=== PATIENT | female | born 1950 | race Caucasian/White ===

== ENCOUNTER → 2020-03-17 14:39 | Outpatient (BNVA) | payer MEDICARE, MEDICAID, SELFPAY | PROVIDERS: PCP Internal Medicine; Referring Provider Internal Medicine; Visit Provider Internal Medicine Cardiovascular Disease | DX: I48.0 Paroxysmal atrial fibrillation (principal) | CPT/HCPCS: 93005 ==

== ENCOUNTER 2020-06-06 09:35 | Outpatient (REF) | payer MEDICARE, MEDICAID, SELFPAY ==
[2020-06-06 10:39] LABS: MANUAL DIFF FLAG NO
[2020-06-06 10:55] LABS: Basophils Percent Auto 0.6 % (0-2); Eosinophils Absolute Auto 0.4 X10*3/uL (0.0-0.4); Eosinophils Percent Auto 5.9 % (0-4); Hematocrit 32.8 % (37-47); Hemoglobin 9.8 g/dl (12.0-16.0); Imm Gran Abs Auto 0.02 X10*3/uL (0.00-0.03); Imm Gran Pct Auto 0.3 % (0.0-0.4); Lymphocytes Absolute Auto 1.6 X10*3/uL (1.2-4.9); Lymphocytes Percent Auto 22.1 % (20-40); Mean Corpuscular HGB Conc 29.9 g/dl (31.0-35.0); Mean Corpuscular Hemoglobin 24.8 pg (27.0-33.0); Monocytes Absolute Auto 0.5 X10*3/uL (0.1-1.2); Monocytes Percent Auto 6.8 % (2-11); Neutrophils Absolute Auto 4.6 X10*3/uL (2.0-8.3); Neutrophils Percent Auto 64.3 % (45-73); Platelet Count 203 X10*3/uL (160-400); Red Blood Count 3.95 X10*6/uL (4.20-5.50); Red Cell Distribution Width 14.9 % (11.0-16.0); White Blood Count 7.2 X10*3/uL (4.8-10.8)
[2020-06-06 11:34] LABS: Vitamin D 25-OH Total 41.8 ng/mL (>30)
[2020-06-06 11:35] LABS: Alanine Aminotransferase 20 U/L (0-31); Alkaline Phosphatase 56 U/L (39-117); Anion Gap 16 (12-20); Aspartate Amino Transferase 24 U/L (5-31); Bilirubin Total 0.3 mg/dL (0.0-1.0); Blood Urea Nitrogen 11 mg/dL (9-16); Calcium 8.8 mg/dL (8.4-10.2); Carbon Dioxide 25 mmol/L (22-29); Chloride 104 mmol/L (96-108); Cholesterol 73 mg/dL; Estimated Glomerular Filt Rate > 60; Glucose Fasting 127 mg/dL (60-99); HDL Cholesterol 47 mg/dL; LDL Cholesterol Calculated 18 mg/dl; Potassium 4.7 mmol/l (3.3-5.1); Sodium 140 mmol/L (135-145); Total Protein 6.5 g/dL (6.5-8.0); Triglycerides 43 mg/dL
== END 2020-06-06 09:36 | disposition home or self-care (01) ==
LOC: HO.LAB 09:35
PROVIDERS: PCP Internal Medicine; Visit Provider Internal Medicine
DX: E78.00 Pure hypercholesterolemia, unspecified (principal); E55.9 Vitamin D deficiency, unspecified; Z79.01 Long term (current) use of anticoagulants; E11.9 Type 2 diabetes mellitus without complications
CPT/HCPCS: 36415; 80053; 80061; 82306; 85025

== ENCOUNTER → 2020-06-14 13:29 | Outpatient (BNVA) | payer MEDICARE, MEDICAID, SELFPAY | PROVIDERS: PCP Internal Medicine; Visit Provider Internal Medicine Cardiovascular Disease | DX: I48.0 Paroxysmal atrial fibrillation (principal); D64.9 Anemia, unspecified; I10 Essential (primary) hypertension | CPT/HCPCS: 93005; 99212 ==

== ENCOUNTER → 2020-06-27 09:31 | Outpatient (BNVA) | payer MEDICARE, MEDICAID, SELFPAY | PROVIDERS: PCP Internal Medicine; Visit Provider Nurse Practitioner Gerontology | DX: Z13.89 Encounter for screening for other disorder (principal) | CPT/HCPCS: Q3014 ==

== ENCOUNTER → 2020-09-05 14:36 | Outpatient (BNVA) | payer MEDICARE, MEDICAID, SELFPAY | PROVIDERS: PCP Internal Medicine; Visit Provider Internal Medicine Cardiovascular Disease | DX: I48.0 Paroxysmal atrial fibrillation (principal) | CPT/HCPCS: 93005 ==

== ENCOUNTER → 2020-09-14 14:00 | Outpatient (BNVA) | payer MEDICARE, MEDICAID, SELFPAY | PROVIDERS: PCP Internal Medicine; Visit Provider Physician Assistant | DX: D64.9 Anemia, unspecified (principal); R93.89 Abnormal findings on diagnostic imaging of other specified body structures; Z79.01 Long term (current) use of anticoagulants | CPT/HCPCS: 99212 ==

== ENCOUNTER 2020-09-15 10:13 | Outpatient (REF) | payer MEDICARE, MEDICAID, SELFPAY ==
[2020-09-15 11:21] LABS: MANUAL DIFF FLAG NO
[2020-09-15 11:37] LABS: Basophils Percent Auto 0.5 % (0-2); Eosinophils Absolute Auto 0.3 X10*3/uL (0.0-0.4); Eosinophils Percent Auto 3.5 % (0-4); Hematocrit 37.1 % (37-47); Hemoglobin 11.4 g/dl (12.0-16.0); Imm Gran Abs Auto 0.02 X10*3/uL (0.00-0.03); Imm Gran Pct Auto 0.3 % (0.0-0.4); Lymphocytes Absolute Auto 1.6 X10*3/uL (1.2-4.9); Lymphocytes Percent Auto 22.1 % (20-40); Mean Corpuscular HGB Conc 30.7 g/dl (31.0-35.0); Mean Corpuscular Hemoglobin 26.6 pg (27.0-33.0); Mean Corpuscular Volume 86.7 fL (80-98); Mean Platelet Volume 12.8 fL (9.4-12.3); Monocytes Absolute Auto 0.5 X10*3/uL (0.1-1.2); Monocytes Percent Auto 6.1 % (2-11); Neutrophils Absolute Auto 4.9 X10*3/uL (2.0-8.3); Neutrophils Percent Auto 67.5 % (45-73); Platelet Count 196 X10*3/uL (160-400); Red Blood Count 4.28 X10*6/uL (4.20-5.50); Red Cell Distribution Width 16.2 % (11.0-16.0); White Blood Count 7.3 X10*3/uL (4.8-10.8)
[2020-09-15 12:04] LABS: Ferritin 13 ng/mL (10-250)
== END 2020-09-15 10:14 | disposition home or self-care (01) ==
LOC: HO.LAB 10:13
PROVIDERS: PCP Internal Medicine; Visit Provider Internal Medicine Medical Oncology
DX: D64.9 Anemia, unspecified (principal)
CPT/HCPCS: 36415; 82728; 85025

== ENCOUNTER 2020-09-26 11:15 | Day surgery (SDC) | payer MEDICARE, MEDICAID, SELFPAY ==
--- NOTE | 2020-09-22 14:35 | P.CONAN_ITS ---
Documented by User: Lilo Zapata 09/22/20 14:39 HPI - Anesthesia Eval Consult details Narrative: 70yo F for Upper Endoscopy and Colonoscopy Xarelto for afib (? lovenox bridge) [facility] Active Problems Active Problems: All Active Problems (Updated 09/21/20 @ 10:42 by Kristina Ruvalcaba) Diabetes mellitus type 2, controlled, without complications (Acute) Anemia (Acute) Pancreatic abnormality (Acute) Abnormal MRI (Acute) Anticoagulant long-term use (Acute) Hyperlipidemia LDL goal <100 (Acute) Essential hypertension (Acute) Dyslipidemia (Acute) Paroxysmal atrial fibrillation (Acute) Urticaria (Acute) Normocytic anemia (Acute) Hypovitaminosis D (Acute) Past Medical History Medical History (Updated 09/21/20 @ 10:42 by Kristina Ruvalcaba) Abnormal MRI Anemia Anticoagulant long-term use Dyslipidemia Essential hypertension Hyperlipidemia LDL goal <100 Hypovitaminosis D IDDM (insulin dependent diabetes mellitus) Normocytic anemia On beta jomar at home Osteoarthritis Osteoporosis Pancreatic abnormality Paroxysmal atrial fibrillation Urticaria Family History Family History Father Diabetes HTN (hypertension) Heart attack Mother No problems noted. Family/Other No problems noted. Sister Diabetes Heart attack Asthma Surgical History Surgical History (Updated 09/21/20 @ 10:39 by Kristina Ruvalcaba) History of cataract extraction with lens replacement History of reversal of tubal ligation History of tubal ligation Social History Social History Household Members: Spouse Alcohol intake: former Smoking Status: Never smoker Use of substances other than those prescribed or required for medical reasons: No Have you been hit, kicked, punched, or otherwise hurt by someone within the past year? If so, by whom?: No Are you DNR?: No Advance Directives: No Advance Directives Information Provided: Yes Current occupational status: retired Meds Allergies Allergy/AdvReac Type Severity Reaction Status Date / Time No Known Allergies Allergy Unknown UN KNOWN Verified 09/21/20 10:24 [NO KNOWN ALLERGIES] Home Medications Medication Instructions Recorded Confirmed Last Taken Type cholecalciferol (vitamin D3) 25 25 mcg PO DAILY 06/13/20 09/21/20 Unknown History mcg (1,000 unit) capsule insulin glargine 100 unit/mL (3 12 unit SUBCUT DAILY ml 06/13/20 09/21/20 Unknown History mL) subcutaneous pen pen needle, diabetic 32 gauge x #50 ea 06/13/20 09/14/20 Unknown History acetaminophen 500 mg tablet 500 mg PO Q6H PRN 09/14/20 09/21/20 Unknown History albuterol sulfate 90 mcg/actuation 2 puff INHALATION Q6H PRN 09/14/20 09/21/20 Unknown History aerosol inhaler rivaroxaban 20 mg tablet 20 mg PO DAILY 09/14/20 09/21/20 Unknown History Exam Exam Date and Time: September 22, 2020 1435 Pertinent Lab Results Pertinent Lab Results: Laboratory Tests 06/30/20 09/15/20 14:35 10:33 WBC 7.3 Hgb 11.4 L Hct 37.1 Plt Count 196 Sodium 141 Potassium 4.4 Chloride 102 Carbon Dioxide 26 BUN 16 Creatinine 0.92 Narrative Narrative: EKG 08/2020 NSR@63 Assessment and Plan Assessment Anesthesia Assessment: Chart Reviewed Documented by User: Ila Pickard 09/26/20 12:34 [facility] Past Medical History Medical History (Updated 09/21/20 @ 10:42 by Kristina Ruvalcaba) Abnormal MRI Anemia Anticoagulant long-term use Dyslipidemia Essential hypertension Hyperlipidemia LDL goal <100 Hypovitaminosis D IDDM (insulin dependent diabetes mellitus) Normocytic anemia On beta jomar at home Osteoarthritis Osteoporosis Pancreatic abnormality Paroxysmal atrial fibrillation Urticaria Family History Family History Father Diabetes HTN (hypertension) Heart attack Mother No problems noted. Family/Other No problems noted. Sister Diabetes Heart attack Asthma Surgical History Surgical History (Updated 09/21/20 @ 10:39 by Kristina Ruvalcaba) History of cataract extraction with lens replacement History of reversal of tubal ligation History of tubal ligation Social History Social History Household Members: Spouse Alcohol intake: former Smoking Status: Never smoker Use of substances other than those prescribed or required for medical reasons: No Have you been hit, kicked, punched, or otherwise hurt by someone within the past year? If so, by whom?: No Are you DNR?: No Advance Directives: No Advance Directives Information Provided: Yes Current occupational status: retired Meds Allergies Allergy/AdvReac Type Severity Reaction Status Date / Time No Known Allergies Allergy Unknown UN KNOWN Verified 09/21/20 10:24 [NO KNOWN ALLERGIES] Home Medications Medication Instructions Recorded Confirmed Last Taken Type cholecalciferol (vitamin D3) 25 25 mcg PO DAILY 06/13/20 09/21/20 Unknown History mcg (1,000 unit) capsule insulin glargine 100 unit/mL (3 12 unit SUBCUT DAILY ml 06/13/20 09/21/20 Unknown History mL) subcutaneous pen pen needle, diabetic 32 gauge x #50 ea 06/13/20 09/14/20 Unknown History acetaminophen 500 mg tablet 500 mg PO Q6H PRN 09/14/20 09/21/20 Unknown History albuterol sulfate 90 mcg/actuation 2 puff INHALATION Q6H PRN 09/14/20 09/21/20 Unknown History aerosol inhaler rivaroxaban 20 mg tablet 20 mg PO DAILY 09/14/20 09/21/20 Unknown History Exam Airway Mallampati Class: II TM Dist: >3cm Neck ROM: Full Partial: Upper Heart: RRr Lungs: CTA Assessment and Plan Assessment Anesthesia Assessment: Anesthesia Plan Discussed and Chart Reviewed Final Anesthetic Review NPO: Yes ASA Class: III Final Preanesthetic Review: No Changes in Pt Med Stat and Consent Obtained/Reviewed Patient Risk: Intermediate Procedure Risk: Intermediate Anesthetic Plan Anesthetic Plan: MAC: Disposition: Standard PACU
[2020-09-26 11:44] VITALS: BMI 28.5
[2020-09-26 11:58] LABS: Glucose, Whole Blood 107 mg/dL (60-115)
[2020-09-26 12:01] VITALS: BP 168/49; PULSE 72; RESP 18; TEMP 37; O2SAT 97
--- NOTE | 2020-09-26 12:29 | MHC.SHP ---
Pre-Procedural Eval Section B Chief Complaint: Anemia Relevant Family History (Specify if Yes): No Relevant Social History: None Present Medications: see Short Stay Collaborative assessment Medical History: Significant History (Anemia Anticoagulant long-term use Dyslipidemia Essential hypertension Hyperlipidemia LDL goal <100 Hypovitaminosis D IDDM (insulin dependent diabetes mellitus) Normocytic anemia On beta jomar at home Osteoarthritis Osteoporosis Pancreatic abnormality Paroxysmal atrial fibrillation Urticaria) History of Previous Operations: Relevant previous surgery/procedure and date(s) (History of cataract extraction with lens replacement History of reversal of tubal ligation History of tubal ligation) Allergies: Allergies Allergy/AdvReac Type Severity Reaction Status Date / Time No Known Allergies Allergy Unknown UN KNOWN Verified 09/21/20 10:24 [NO KNOWN ALLERGIES] Review of Systems Sugical H&P ROS: Negative: Constitution, Cardiovascular, Respiratory, Neurological, Psychiatric, Hem-Onc, Allergic/Immunologic, Gastrointestinal, Genitourinary, Musculoskeletal, Integumentary, Endocrine and Eyes/Ears/Nose/Throat Exam Surgical H&P Exam: Normal: HEENT, Normal: Heart, Normal: Lungs, Normal: Extremities, Normal: Abdomen, Normal: Skin and Normal: Neurological Plan Diagnosis/Plan: Unchanged I have reviewed the history and physical and performed a pertinent physical examination on my patient. No changes have occurred unless specified.
[2020-09-26] MEDS: Lactated Ringers 1,000 ML 100 ML IVCONT (12:32)
--- NOTE | 2020-09-26 12:43 | P.BOP_ITS ---
Brief Operative Note Date of Service: 09/26/20 Pre-op diagnosis: anemia Post-op diagnosis: same Procedure: see op note Surgeon: Nataly Mijares MD Anesthesia: MAC Was an Grain Oilseed Or Pasture Farm Manager used for this Procedure?: No Estimated blood loss (mL): 0 Condition: stable Disposition: PACU
--- NOTE | 2020-09-26 12:44 | W.PM.OPN ---
Operative Note Operative Note Date of Service: 09/26/20 Narrative: Operative Information Procedure Description: EGD, Colonoscopy FLEXIBLE TRANSORAL UPPER GASTROINTESTINAL ENDOSCOPY AND COLONOSCOPY PROCEDURE NOTE UPPER ENDOSCOPY Consent: Indications for the procedure and potential complications of bleeding, perforation, reaction to medications and missed diagnosis were discussed with the patient and informed consent was obtained. Instrument: Olympus GIF H 190 J mid size upper endoscope Monitoring: Vital signs and clinical assessment, continuous EKG monitoring, Pulse oximetry, Carbon Dioxide monitoring and blood pressure monitoring were done throughout the procedure. Procedure: The patient was placed in the left lateral decubitis position and pre-procedure medications were administered and a bite block was placed. The endoscope was inserted into the mouth and advanced under direct vision to the third part of duodenum. A careful inspection was made as the upper endoscope was withdrawn including a retroflexed examination of the proximal stomach; Findings and interventions are described below. Findings: Larynx:normal Esophagus: GE junction at 35 cm, diaphragm hiatus at 37 cm, consistent with 2 cm sliding hiatal hernia, short segment barretts suspected with single tongue of salmon pink tissue noted, bx taken which persistently oozed, so 3 clips applied Stomach: Scattered scarring and erythema compatible with atrophic gastritis. Biopsies were obtained. Grade 2 flap valve on retroflexed examination of the cardia. Duodenum: Normal bulb and descending duodenum, bx taken Intervention: Biopsies as noted above COLONOSCOPY Instrument: Olympus variable stiffness pediatric scope 190L Colonoscopy Monitoring: Vital signs and clinical assessment, continuous EKG monitoring, Pulse oximetry, Carbon Dioxide monitoring and blood pressure monitoring were done throughout the procedure. Colon withdrawal time was 10 minutes. Procedure: The patient was placed in the left lateral decubitis position and pre-procedure medications were administered. After a digital rectal examination of the ano-rectum, the video colonoscope was inserted into the rectum and advanced through the colon to the cecum/TI. The colonoscope was slowly withdrawn in a retrograde panoramic fashion and the colon mucosa was carefully examined including a retroflexed view of the rectum. Findings and interventions are described below. Procedure Difficulty:easy Findings: Terminal Ileum-normal Cecum:normal Ascending Colon: normal Transverse Colon -normal Descending Colon:normal Sigmoid Colon: normal Rectum: Retroflexion with small internal hemorrhoids, grade I Anorectum - normal Colon preparation: Melvin Bowel Preparation Scale Right colon; 2 Transverse colon: 1 Left colon; 1 (0 = Unprepared colon segment with mucosa not seen due to solid stool that cannot be cleared. 1 = Portion of mucosa of the colon segment seen, but other areas of the colon segment not well seen due to staining, residual stool and/or opaque liquid. 2 = Minor amount of residual staining, small fragments of stool and/or opaque liquid, but mucosa of colon segment seen well. 3 = Entire mucosa of colon segment seen well with no residual staining, small fragments of stool or opaque liquid) Impression and Post Procedure Diagnosis: Endoscopy Findings: atrophic gastritis barretts esophagus Colonoscopy Findings: internal hemorrhoids Plan: Await Pathology results Repeat Colonoscopy in 1 year due to prep or earlier if clinically indicated High fiber diet leaflet avoid straining at stool, epsom salts and sitz bath, anusol supps or cream prn if bx neg and ongoing anemia then can consider capsule endoscopy Above findings were reviewed with the patient and relevant handouts were provided if indicated.
[2020-09-26 13:30] VITALS: BP 116/59; PULSE 73; RESP 16; TEMP 36.6; O2SAT 95
[2020-09-26 13:45] VITALS: BP 125/53; PULSE 71; RESP 16; TEMP 36.6; O2SAT 97
== END 2020-09-26 14:30 | disposition home or self-care (01) ==
PROVIDERS: PCP Internal Medicine; Visit Provider Internal Medicine Gastroenterology
PROC: (CPT 45378; principal; 2020-09-26 12:50)
DX: D64.9 Anemia, unspecified (principal); K64.0 First degree hemorrhoids; K22.70 Barrett's esophagus without dysplasia; K29.40 Chronic atrophic gastritis without bleeding; B96.81 Helicobacter pylori [H. pylori] as the cause of diseases classified elsewhere; K44.9 Diaphragmatic hernia without obstruction or gangrene; I48.0 Paroxysmal atrial fibrillation; Z79.01 Long term (current) use of anticoagulants; I10 Essential (primary) hypertension; M81.0 Age-related osteoporosis without current pathological fracture; E11.9 Type 2 diabetes mellitus without complications; Z79.4 Long term (current) use of insulin; Z79.899 Other long term (current) drug therapy
CPT/HCPCS: 45378; 43239; 82947; 88305; 88342

== ENCOUNTER → 2020-10-03 12:58 | Outpatient (BNVA) | payer MEDICARE, MEDICAID, SELFPAY | PROVIDERS: PCP Internal Medicine; Visit Provider Nurse Practitioner Gerontology | DX: E11.9 Type 2 diabetes mellitus without complications (principal); Z79.4 Long term (current) use of insulin; E78.5 Hyperlipidemia, unspecified; I10 Essential (primary) hypertension | CPT/HCPCS: 82947; 99212 ==

== ENCOUNTER 2020-11-16 09:50 | Outpatient (REF) | payer MEDICARE, MEDICAID, SELFPAY ==
[2020-11-16 10:50] LABS: MANUAL DIFF FLAG NO
[2020-11-16 11:07] LABS: Basophils Percent Auto 0.5 % (0-2); Eosinophils Absolute Auto 0.4 X10*3/uL (0.0-0.4); Eosinophils Percent Auto 5.1 % (0-4); Hematocrit 37.5 % (37-47); Hemoglobin 11.8 g/dl (12.0-16.0); Imm Gran Abs Auto 0.02 X10*3/uL (0.00-0.03); Imm Gran Pct Auto 0.3 % (0.0-0.4); Lymphocytes Absolute Auto 1.4 X10*3/uL (1.2-4.9); Lymphocytes Percent Auto 17.6 % (20-40); Mean Corpuscular HGB Conc 31.5 g/dl (31.0-35.0); Mean Corpuscular Hemoglobin 27.3 pg (27.0-33.0); Mean Corpuscular Volume 86.6 fL (80-98); Mean Platelet Volume 12.6 fL (9.4-12.3); Monocytes Absolute Auto 0.4 X10*3/uL (0.1-1.2); Monocytes Percent Auto 5.1 % (2-11); Neutrophils Absolute Auto 5.7 X10*3/uL (2.0-8.3); Neutrophils Percent Auto 71.4 % (45-73); Platelet Count 191 X10*3/uL (160-400); Red Blood Count 4.33 X10*6/uL (4.20-5.50); Red Cell Distribution Width 14.3 % (11.0-16.0)
[2020-11-16 11:36] LABS: Alanine Aminotransferase 29 U/L (0-31); Albumin Level 4.3 g/dL (3.5-5.0); Alkaline Phosphatase 61 U/L (39-117); Anion Gap 14 (12-20); Aspartate Amino Transferase 34 U/L (5-31); Bilirubin Total 0.4 mg/dL (0.0-1.0); Blood Urea Nitrogen 13 mg/dL (9-16); Calcium 9.6 mg/dL (8.4-10.2); Carbon Dioxide 30 mmol/L (22-29); Chloride 102 mmol/L (96-108); Cholesterol 67 mg/dL; Estimated Glomerular Filt Rate > 60; Glucose Fasting 98 mg/dL (60-99); HDL Cholesterol 44 mg/dL; Iron 70 mcg/dL (30-160); LDL Cholesterol Calculated 16 mg/dl; Lactate Dehydrogenase 204 U/L (122-220); Percent Iron Saturation 19 % (15-50); Potassium 4.8 mmol/L (3.3-5.1); Sodium 141 mmol/L (135-145); Total Iron Binding Capacity 364 mcg/dL (228-428); Total Protein 6.9 g/dL (6.5-8.0); Triglycerides 36 mg/dL; Unsaturated Iron Binding 294 ug/dL
[2020-11-16 11:59] LABS: Estimated Average Glucose 154 mg/dL
[2020-11-19 20:37] LABS: Vitamin D 25-OH, D2 <4 ng/mL; Vitamin D 25-OH, D3 40 ng/mL; Vitamin D 25-OH, Total 40 ng/mL (30-100)
[2020-11-21 23:36] LABS: Intrinsic Factor Antibodies Negative (Negative)
[2020-11-22 13:42] LABS: Fructosamine 252 umol/L (205-285)
[2020-11-22 23:27] LABS: Parietal Cell Antibody <=20.0 Unit (<=20.0)
== END 2020-11-16 09:51 | disposition home or self-care (01) ==
LOC: HO.LAB 09:50
PROVIDERS: Physician Assistant; Absent Provider Nurse Practitioner Gerontology; PCP Internal Medicine; Referring Provider Internal Medicine Medical Oncology; Visit Provider Internal Medicine
DX: D64.9 Anemia, unspecified (principal); E11.22 Type 2 diabetes mellitus with diabetic chronic kidney disease; N18.9 Chronic kidney disease, unspecified; E55.9 Vitamin D deficiency, unspecified; E78.5 Hyperlipidemia, unspecified; Z79.4 Long term (current) use of insulin
CPT/HCPCS: 36415; 80053; 80061; 82306; 82985; 83036; 83516; 83540; 83615; 85025; 86340

== ENCOUNTER 2020-11-17 11:36 | Outpatient (REF) | payer MEDICARE, MEDICAID, SELFPAY | END 2020-11-17 11:37 | disposition home or self-care (01) | LOC: HO.LNP 11:36 | PROVIDERS: Visit Provider Internal Medicine | DX: R19.7 Diarrhea, unspecified (principal) | CPT/HCPCS: 87338 ==

== ENCOUNTER 2020-11-21 13:42 | Outpatient (REF) | payer MEDICARE, MEDICAID, SELFPAY ==
--- NOTE | ~2020-11-21 | CT_ITS ---
EXAMINATION: CT ABDOMEN AND PELVIS WITH CONTRAST CLINICAL INFORMATION: Pancreatic mass COMPARISON: None TECHNIQUE: Multidetector volumetric images were obtained from the superior aspect of the liver through the pubic symphysis following administration 85 mL of Omnipaque 350 intravenous contrast. Sagittal and coronal reformatted images were obtained on the technologist's workstation. Oral contrast: Yes This CT examination was performed using dose optimization techniques as appropriate, variously including the following: *Automated exposure control *Adjustment of mA and/or kV according to patient size (this includes techniques or standardized protocols for targeted exams where dose is matched to indication/reason for exam; i.e. extremities or head) *Use of iterative reconstruction technique DLP: 432 mGy-cm FINDINGS: LUNG BASES: The visualized lung bases are unremarkable. LIVER, GALLBLADDER, AND BILIARY TREE: The liver is normal in size, shape, and attenuation. No focal hepatic lesion or biliary ductal dilatation is present. The gallbladder is unremarkable with no evidence of radiopaque gallstones, gallbladder wall thickening, or obvious pericholecystic inflammatory changes. PANCREAS: Unfortunately, pancreatic mass protocol was not performed. No pancreatic mass is evident on portal phase imaging. The main pancreatic duct does not appear dilated. Peripancreatic fat is normal SPLEEN: Unremarkable. ADRENAL GLANDS: Unremarkable. KIDNEYS AND URETERS: There is cortical thinning seen in the lower pole the left kidney. There is a low-attenuation area adjacent to this region measuring 1.5 cm. This may represent a evolving infarct or area of infection. Neoplastic process cannot be excluded and imaging follow-up is recommended. The right kidney is unremarkable. BLADDER: There is a cystocele. The bladder is otherwise unremarkable. GASTROINTESTINAL TRACT: The small and large bowel are unremarkable. The appendix is unremarkable. ABDOMINAL WALL: There is a small umbilical hernia containing fat. LYMPH NODES: Normal. VASCULAR: Unremarkable. PELVIC VISCERA: There is a 2.7 x 5.5 cm right pelvic cyst probably representing adnexal cyst in the uterus and left adnexa appear unremarkable. OSSEOUS STRUCTURES: There are degenerative changes of the spine. CT/CT abdomen pelvis w con IMPRESSION: No pancreatic mass seen. Cortical thinning or scarring in the lower pole the left kidney and adjacent 1.5 cm low-attenuation lesion. This may represent an evolving infarct or area of infection. Neoplasm cannot be excluded and imaging follow-up is recommended. Cystocele. 2.7 x 5.5 cm right adnexal cyst. Follow-up pelvic ultrasound recommended.
[2020-11-21] MEDS: iohexoL 350 MG/ML 100 ML INFUS..BTL IV (17:23)
== END 2020-11-21 13:43 | disposition home or self-care (01) ==
LOC: HO.CT 13:42
PROVIDERS: Visit Provider Internal Medicine Medical Oncology
DX: R93.89 Abnormal findings on diagnostic imaging of other specified body structures (principal)
CPT/HCPCS: 74177; Q9967

== ENCOUNTER → 2020-11-24 12:11 | Outpatient (BNVA) | payer MEDICARE, MEDICAID, SELFPAY | PROVIDERS: PCP Internal Medicine; Referring Provider Internal Medicine; Visit Provider Physician Assistant | DX: D64.9 Anemia, unspecified (principal); A04.8 Other specified bacterial intestinal infections | CPT/HCPCS: 99212 ==

== ENCOUNTER → 2020-11-25 11:26 | Outpatient (BNVA) | payer MEDICARE, MEDICAID, SELFPAY | PROVIDERS: PCP Internal Medicine; Visit Provider Nurse Practitioner Gerontology | DX: E11.9 Type 2 diabetes mellitus without complications (principal); E78.5 Hyperlipidemia, unspecified; I10 Essential (primary) hypertension; Z79.4 Long term (current) use of insulin | CPT/HCPCS: 82947; 99212 ==

== ENCOUNTER 2020-12-01 14:38 | Outpatient (REF) | payer MEDICARE, MEDICAID, SELFPAY ==
--- NOTE | ~2020-12-01 | MR_ITS ---
EXAMINATION: MR ABDOMEN WITHOUT AND WITH CONTRAST CLINICAL INFORMATION: Followup renal lesion. COMPARISON: Previous CT of the abdomen and pelvis 11/21/2020 TECHNIQUE: MR abdomen was performed without and with use of 6.5 mL intravenous Gadavist gadolinium contrast. Postcontrast images are performed in multiphase dynamic sequences. Imaging was performed in 3 planes. FINDINGS: LUNG BASES: The visualized lung bases are unremarkable. LIVER, GALLBLADDER, AND BILIARY TREE: The liver is normal in size and shape. There is heterogeneous signal loss in the liver on [id number] sequences suggestive of areas of fatty infiltration. No focal liver lesion is seen. The gallbladder is normal. There is no biliary duct dilatation. PANCREAS: Unremarkable. SPLEEN: Normal. ADRENAL GLANDS: Normal. KIDNEYS AND URETERS: There is cortical thinning or scarring in the lower pole of the left kidney. There is a 1.2 cm lesion in the lower pole of the left kidney. This is low signal on T1-weighted sequences and high signal on T2-weighted sequences. Contrast-enhanced sequences are limited due to motion artifact. There is question of linear enhancement, for example image 60 postcontrast. It is uncertain whether this is true enhancement or represents artifact due to motion. The kidneys are otherwise unremarkable. GASTROINTESTINAL TRACT: The visualized small and large bowel is normal. The appendix is normal. No ascites or fluid collection. ABDOMINAL WALL: Small umbilical hernia containing fat. LYMPH NODES: No lymphadenopathy. VASCULAR: Unremarkable. OSSEOUS STRUCTURES: Marrow signal normal. Mild curvature of the lumbar spine to the left and degenerative change. MR/MR abdomen wo/w con IMPRESSION: Cortical thinning or scarring in the lower pole of the left kidney. Adjacent 1.2 cm lesion in the lower pole of the left kidney. Enhanced images are limited due to motion artifact. There is question of linear enhancement of the lesion versus changes due to motion artifact. Followup renal ultrasound in 6 months is recommended. Fatty infiltration of the liver. Normal-appearing pancreas.
== END 2020-12-01 14:39 | disposition home or self-care (01) ==
LOC: HO.MRI 14:38
PROVIDERS: PCP Internal Medicine; Visit Provider Internal Medicine Medical Oncology
DX: N28.89 Other specified disorders of kidney and ureter (principal)
CPT/HCPCS: 74183; A9585

== ENCOUNTER → 2020-12-05 14:14 | Outpatient (BNVA) | payer MEDICARE, MEDICAID, SELFPAY | PROVIDERS: PCP Internal Medicine; Referring Provider Internal Medicine; Visit Provider Internal Medicine Cardiovascular Disease ==

== ENCOUNTER → 2024-01-23 14:09 | Outpatient (RCR) | payer MEDICARE, MEDICAID, SELFPAY ==
[2020-06-30 14:07] VITALS: BP 141/66; PULSE 66; RESP 12; TEMP 36.3; O2SAT 98; BMI 27.5
--- NOTE | 2020-06-30 14:17 | P.CNHO_ITS ---
Subjective - Subjective Chief complaint: CONSULT FOR ANEMIA. Patient: new to practice Consult date: 06/30/20 Requesting Physician: Casper. Primary Care Provider: Casper. Medical Summary: DIAGNOSIS: ANEMIA. HPI - Consult Narrative Reason for consult: Consult for anemia. Narrative: Genevieve Jacobo is a pleasant 70 year old lady who has been noted to be anemic. Serial hemoglobins are as follows: Aug 20, 06:28 11.8 Aug 19 12:42 12.2 Dec 07, 18:13 12.2 Dec 05 19:58 12.2 October 18 08:43 11.0 October 09 13:26 11.7 ROS: She does complain of easy fatigability. No headache no dizziness. No chest pain or trouble breathing. She does have abdominal pain, bloating and change of bowel habits. Denies urinary complaints. Does feel rather depressed. No skin rashes or pruritus. Review of Systems - Constitutional Reports system reviewed and no additional complaints, except as documented, Reports lack of energy, Reports malaise, Reports weakness, Denies weight loss - Eyes Reports system reviewed and no additional complaints, except as documented, Denies blurry vision - ENT Reports system reviewed and no additional complaints, except as documented - Cardiovascular Reports system reviewed and no additional complaints, except as documented, Denies chest pain at rest - Respiratory Reports no additional respiratory complaints, Denies chest congestion - Gastrointestinal Reports system reviewed and no additional complaints, except as documented, Reports abdominal pain, Reports bloating, Reports change in bowel habits - Genitourinary Reports no additional female genitourinary complaints, Denies abnormal vaginal bleeding - Musculoskeletal Reports system reviewed and no additional complaints, except as documented, Reports back pain - Integumentary/Breasts Skin/Breast: Reports no additional skin complaints, Denies bleeding lesions - Neurologic Reports system reviewed and no additional complaints, except as documented - Psychiatric Reports system reviewed and no additional complaints, except as documented - Endocrine Reports no additional endocrine complaints - Hematologic/Lymphatic Reports system reviewed and no additional complaints, except as documented - Allergic/Immunologic Reports system reviewed and no additional complaints, except as documented Oncology Screenings - ECOG Performance Status ECOG Performance Status: 0 PMFSH Medical History: Medical History (Last Reviewed 06/27/20 @ 13:50 by HORACE Paul) Dyslipidemia Essential hypertension Hyperlipidemia LDL goal <100 Hypovitaminosis D Normocytic anemia Osteoarthritis Osteoporosis Paroxysmal atrial fibrillation Urticaria Functional capacity: independent ambulation Patient : No Family History: Family History (Last Updated 06/30/20 @ 14:11 by Ila Seth) Father Diabetes HTN (hypertension) Heart attack Mother No problems noted. Family/Other No problems noted. Sister Diabetes Heart attack Asthma Surgical History: Surgical History (Last Reviewed 06/27/20 @ 13:50 by HORACE Paul) History of reversal of tubal ligation History of tubal ligation Social History: Social History (Last Updated 06/30/20 @ 14:12 by Ila Seth) Living Situation History: Household Members: Spouse Alcohol History: Alcohol intake: former Alcohol History Details: Alcohol intake frequency: does not drink Tobacco History: Smoking Status: Never smoker Substance Use History: Use of substances other than those prescribed or required for medical reasons : No Nutrition Assessment: Patient : No Smoking status: Never smoker Home Medications and Allergies Home Medications Medication Instructions Recorded Confirmed Type cholecalciferol (vitamin D3) 25 25 mcg PO DAILY 06/13/20 06/30/20 History mcg (1,000 unit) capsule insulin glargine 100 unit/mL (3 12 unit SUBCUT DAILY ml 06/13/20 06/30/20 History mL) subcutaneous pen pen needle, diabetic 32 gauge x #50 ea 06/13/20 06/30/20 History Allergies Allergy/AdvReac Type Severity Reaction Status Date / Time No Known Allergies Allergy Unknown UN KNOWN Verified 06/27/20 13:50 [NO KNOWN ALLERGIES] Physical Exam Vital signs: Vital Signs Temp 97.4 F 06/30/20 14:07 Pulse 66 06/30/20 14:07 Resp 12 06/30/20 14:07 BP 141/66 H 06/30/20 14:07 Pulse Ox 98 06/30/20 14:07 Intake & Output 06/29/20 06/30/20 06/30/20 18:59 06:59 18:59 Other: Weight 63.9 kg Weight 63.9 kg - Constitutional Present: no acute distress - Routine HEENT Exam Head: Present: normal inspection ENT: Present: mucous membranes moist - Routine Neck Exam Present: supple - Routine Respiratory Exam Present: CTAB - Routine Cardiovascular Exam Cardiovascular: Present: RRR, S1, S2 - Routine Abdominal Exam Present: normal bowel sounds, nontender - Routine Rectal Exam Patient deferred: digital exam - Routine Extremities Exam Present: nontender - Routine Back/Spine/Pelvis Exam Back/Spine: Present: full ROM - Routine Skin Exam Present: intact - Routine Neurological Exam Present: alert, oriented X3 - Detailed Neurological Exam: Coma Scale Eye Opening: Spontaneous (4) Verbal Response: Oriented (5) Motor Response: Obeys commands (6) [place] Coma Scale Total: 15 Hem/Onc Consult Result - Labs CBC & Chem 7: 06/30/20 14:35 06/30/20 14:35 Assessment and Plan (1) Anemia Status: Acute This is a pleasant 70-year-old lady with a history of Anemia on going intermittently, since June of 2015. This is normochromic normocytic. Most likely she has Iron Deficiency Anemia. Her iron profile revealed: 38/397/4. She could have anemia on the basis of GI blood loss or iron malabsorption, from something like celiac disease. DIFFERENTIAL DIAGNOSIS: 2. ACD: She could have multifactorial anemia with a component of iron d eficiency and anemia of chronic disease. 3. B12 folate deficiency: B12 is 238. Folate 13.1. 4. Hemolytic anemia: Retic 1.5. hAPTO 193. LDH 200. 5. Myelo infiltrative disorder: MDS versus lymphoma versus multiple myeloma: Doubt that she has this. (SIEP: NO MONOCLONAL SPIKE.) PLAN: I will check transglute IgA, to rule out celiac disease. (<1.) Will refer her for further GI evaluation for upper endoscopy and colonoscopy. She tells me her last colonoscopy was 10 years ago at [facility]. I have requested records from there, they were not located. In the meantime, I will start her on oral iron supplements. In addition there is a report that she had a pancreatic mass, it is in the medical records from June 2015. Most likely she has an IPMN. She tells me the CT scan was done at [facility]. I have requested for those records. Can recheck CT abdomen to update. She will return in 3 months for a follow-up visit. Thank you CC: Dr. Shirley. Nunu Milner.
[2020-06-30 14:53] LABS: Baso%MD 0.4 %; Eos%MD 5.4 %; Hematocrit 32.1 % (37-47); Hemoglobin 9.7 g/dl (12.0-16.0); IG%MD 0.4 %; Immature Retic Fraction 18.7 % (3.0-15.9); Lymph%MD 23.8 %; Mean Corpuscular HGB Conc 30.2 g/dl (31.0-35.0); Mean Corpuscular Hemoglobin 24.9 pg (27.0-33.0); Mean Corpuscular Volume 82.5 fL (80-98); Mean Platelet Volume 12.1 fL (9.4-12.3); Mono%MD 5.9 %; Neut%MD 64.1 %; Platelet Count 185 X10*3/uL (160-400); Red Blood Count 3.89 X10*6/uL (4.20-5.50); Red Cell Distribution Width 15.4 % (11.0-16.0); Retic HGB Equivalent 26.2 pg (30.0-35.0); Reticulocyte Percent 1.5 % (0.5-1.8); Reticulocytes Absolute 0.058 X10*6/uL (0.026-0.095); White Blood Count 7.8 X10*3/uL (4.8-10.8)
[2020-06-30 15:19] LABS: Alanine Aminotransferase 19 U/L (0-31); Albumin Level 4.1 g/dL (3.5-5.0); Alkaline Phosphatase 56 U/L (39-117); Anion Gap 17 (12-20); Aspartate Amino Transferase 22 U/L (5-31); Bilirubin Total < 0.2 mg/dL (0.0-1.0); Blood Urea Nitrogen 16 mg/dL (9-16); Carbon Dioxide 26 mmol/L (22-29); Chloride 102 mmol/L (96-108); Creatinine Clr Calc Pharmacy 46.1; Estimated Glomerular Filt Rate > 60; Glucose Random 84 mg/dL (60-115); Iron 38 mcg/dL (30-160); Lactate Dehydrogenase 200 U/L (122-220); Percent Iron Saturation 10 % (15-50); Potassium 4.4 mmol/L (3.3-5.1); Sodium 141 mmol/L (135-145); Total Iron Binding Capacity 397 mcg/dL (228-428); Total Protein 6.7 g/dL (6.5-8.0); Unsaturated Iron Binding 359 ug/dL
[2020-06-30 15:39] LABS: Ferritin 4 ng/mL (10-250)
[2020-06-30 16:01] LABS: Folate 13.1 ng/mL (> or = 4.0); Vitamin B12 238 pg/mL (200-900)
[2020-06-30 18:06] LABS: Band Neutrophils Percent 2 % (3-5); Eosinophils Absolute Manual 0.4 X10*3/UL (0.0-0.8); Eosinophils Percent Manual 5 % (0-4); Lymphocytes Absolute Manual 1.6 X10*3/uL (0.6-4.8); Lymphocytes Percent Manual 21 % (20-40); Monocytes Absolute Manual 0.4 X10*3/uL (0.0-1.2); Monocytes Percent Manual 5 % (2-11); Neutrophils Absolute Manual 5.4 X10*3/uL (2.2-7.9); Neutrophils Percent Manual 67 % (45-73)
[2020-06-30 18:07] LABS: Hypochromasia 1+; Platelet Estimate NORMAL (NORMAL); RBC Morphology NOTED
[2020-06-30 18:08] LABS: Large Platelet PRESENT; Platelet Morphology Comment NOTED
[2020-07-01 12:02] LABS: Transglutaminase IgA 1 U/mL
[2020-07-01 13:37] LABS: Haptoglobin 193 mg/dL (43-212)
[2020-07-02 13:37] LABS: IgA 224 mg/dL (70-320); IgG 904 mg/dL (600-1540); IgM 43 mg/dL (50-300)
[2020-09-29 12:56] VITALS: BP 149/64; PULSE 69; RESP 12; TEMP 36.7; O2SAT 100; BMI 27.7
[2020-09-29 13:06] LABS: Basophils Percent Auto 0.2 % (0-2); Eosinophils Absolute Auto 0.4 X10*3/uL (0.0-0.4); Eosinophils Percent Auto 4.2 % (0-4); Hematocrit 36.7 % (37-47); Hemoglobin 11.2 g/dl (12.0-16.0); Imm Gran Abs Auto 0.02 X10*3/uL (0.00-0.03); Imm Gran Pct Auto 0.2 % (0.0-0.4); Lymphocytes Absolute Auto 1.7 X10*3/uL (1.2-4.9); Lymphocytes Percent Auto 18.1 % (20-40); MANUAL DIFF FLAG NO; Mean Corpuscular HGB Conc 30.5 g/dl (31.0-35.0); Mean Corpuscular Hemoglobin 26.5 pg (27.0-33.0); Mean Platelet Volume 11.7 fL (9.4-12.3); Monocytes Absolute Auto 0.4 X10*3/uL (0.1-1.2); Monocytes Percent Auto 4.1 % (2-11); Neutrophils Absolute Auto 6.8 X10*3/uL (2.0-8.3); Neutrophils Percent Auto 73.2 % (45-73); Platelet Count 204 X10*3/uL (160-400); Red Blood Count 4.22 X10*6/uL (4.20-5.50); Red Cell Distribution Width 16.2 % (11.0-16.0); White Blood Count 9.3 X10*3/uL (4.8-10.8)
--- NOTE | 2020-09-29 13:14 | P.PNHO_ITS ---
Medical Summary - Medical Summary Date of Service: 09/29/20 Chief complaint: Follow-up for anemia. Medical Summary: DIAGNOSIS: ANEMIA. CURRENT THERAPY: Oral iron. Interval History Interval history: Genevieve Jacobo is a pleasant 70 year old lady, here for a follow-up visit. She does not complain of easy fatigability. No headache no dizziness. No chest pain or trouble breathing. She does have abdominal pain, bloating and change of bowel habits. Denies urinary complaints. Does feel rather depressed. No skin rashes or pruritus. Denies abdominal pain nausea vomiting heartburn or indigestion. She does get some reflux symptoms. As part of the anemia workup, she had an upper endoscopy and colonoscopy 09/[address] Mijares. Findings: Larynx:normal Esophagus: GE junction at 35 cm, diaphragm hiatus at 37 cm, consistent with 2 cm sliding hiatal hernia, short segment barretts suspected with single tongue of salmon pink tissue noted, bx taken which persistently oozed, so 3 clips applied Stomach: Scattered scarring and erythema compatible with atrophic gastritis. Biopsies were obtained. Grade 2 flap valve on retroflexed examination of the cardia. Duodenum: Normal bulb and descending duodenum, bx taken Pathology revealed: GE junction: Phan's esophagus. Mild chronic inactive inflammation. Stomach: H pylori I positive. Duodenum: Normal. Colonoscopy: Poor prep, otherwise normal. Repeat colonoscopy in 1 year due to the poor prep. Previous history: She was noted to be Anemic. Serial hemoglobins are as follows: Aug 20 06:28 11.8 Aug 19 12:42 12.2 Dec 07 18:13 12.2 Dec 05 19:58 12.2 October 18 08:43 11.0 October 09 13:26 11.7 Review of Systems - Constitutional Reports system reviewed and no additional complaints, except as documented - Eyes Reports system reviewed and no additional complaints, except as documented - ENT Reports system reviewed and no additional complaints, except as documented - Cardiovascular Reports system reviewed and no additional complaints, except as documented - Respiratory Reports no additional respiratory complaints - Gastrointestinal Reports system reviewed and no additional complaints, except as documented - Genitourinary Reports no additional female genitourinary complaints - Musculoskeletal Reports system reviewed and no additional complaints, except as documented - Integumentary/Breasts Skin/Breast: Reports no additional skin complaints - Neurologic Reports system reviewed and no additional complaints, except as documented, Reports weakness - Psychiatric Reports system reviewed and no additional complaints, except as documented - Endocrine Reports no additional endocrine complaints - Hematologic/Lymphatic Reports system reviewed and no additional complaints, except as documented - Allergic/Immunologic Reports system reviewed and no additional complaints, except as documented [facility]LY [facility], [facility]1983 Medical History: Medical History (Last Updated 09/21/20 @ 10:42 by Kristina Ruvalcaba) Abnormal MRI Anemia Anticoagulant long-term use Dyslipidemia Essential hypertension Hyperlipidemia LDL goal <100 Hypovitaminosis D IDDM (insulin dependent diabetes mellitus) Normocytic anemia On beta jomar at home Osteoarthritis Osteoporosis Pancreatic abnormality Paroxysmal atrial fibrillation Urticaria Functional capacity: independent ambulation Patient : No Family History: Family History (Last Reviewed 09/14/20 @ 14:44 by Amita Velez PA-C) Father Diabetes HTN (hypertension) Heart attack Mother No problems noted. Family/Other No problems noted. Sister Diabetes Heart attack Asthma Surgical History: Surgical History (Last Updated 09/21/20 @ 10:39 by Kristina Ruvalcaba) History of cataract extraction with lens replacement History of reversal of tubal ligation History of tubal ligation Social History: Social History (Last Reviewed 09/14/20 @ 14:44 by Amita Velez PA-C) Living Situation History: Household Members: Spouse Alcohol History: Alcohol intake: former Alcohol History Details: Alcohol intake frequency: does not drink Tobacco History: Smoking Status: Never smoker Substance Use History: Use of substances other than those prescribed or required for medical reasons : No Nutrition Assessment: Patient : No Occupation Assessmet: Current occupational status: retired Smoking status: Never smoker Oncology Screenings - ECOG Performance Status ECOG Performance Status: 0 Home Medications and Allergies Home Medications Medication Instructions Recorded Confirmed Type cholecalciferol (vitamin D3) 25 25 mcg PO DAILY 06/13/20 09/29/20 History mcg (1,000 unit) capsule insulin glargine 100 unit/mL (3 12 unit SUBCUT DAILY ml 06/13/20 09/29/20 History mL) subcutaneous pen pen needle, diabetic 32 gauge x #50 ea 06/13/20 09/29/20 History acetaminophen 500 mg tablet 500 mg PO Q6H PRN 09/14/20 09/29/20 History albuterol sulfate 90 mcg/actuation 2 puff INHALATION Q6H PRN 09/14/20 09/29/20 History aerosol inhaler rivaroxaban 20 mg tablet 20 mg PO DAILY 09/14/20 09/29/20 History Allergies Allergy/AdvReac Type Severity Reaction Status Date / Time No Known Allergies Allergy Unknown UN KNOWN Verified 09/21/20 10:24 [NO KNOWN ALLERGIES] Exam Vital signs: Vital Signs Temp 98.0 F 09/29/20 12:56 Pulse 69 09/29/20 12:56 Resp 12 09/29/20 12:56 BP 149/64 H 09/29/20 12:56 Pulse Ox 100 09/29/20 12:56 Intake & Output 09/28/20 09/29/20 09/29/20 18:59 06:59 18:59 Other: Weight 64.5 kg [place] Weight in Grams [id number] Weight 64.5 kg Body Mass Index 27.7 - Constitutional Present: no acute distress - Routine HEENT Exam Head: Present: normal inspection Eye: Present: normal appearance ENT: Present: mucous membranes moist - Routine Neck Exam Present: full ROM - Routine Respiratory Exam Present: CTAB - Routine Cardiovascular Exam Cardiovascular: Present: RRR, S1, S2 - Routine Abdominal Exam Present: normal bowel sounds, nontender - Routine Rectal Exam Patient deferred: digital exam - Routine Extremities Exam Present: nontender - Routine Back/Spine/Pelvis Exam Back/Spine: Present: full ROM - Routine Skin Exam Present: intact - Routine Neurological Exam Present: alert, oriented X3 - Detailed Neurological Exam: Coma Scale Eye Opening: Spontaneous (4) - Routine Psychiatric Exam Present: normal affect Data - Labs CBC & Chem 7: 09/29/20 12:55 09/29/20 12:55 Labs: 06/30/20 14:35 Complete Blood Count Man Dif Routine Comprehensive Met. Panel Routine Ferritin Routine Haptoglobin Routine IRON PROFILE Routine Immunofixation Pnl, Serum Routine Lactate Dehydrogenase Routine Reticulocyte Count Routine Transglutaminase IgA Routine Vitamin B12 and Folate Routine Laboratory Last Values WBC 7.8 X10*3/uL (4.8-10.8) 06/30/20 14:35 RBC 3.89 X10*6/uL (4.20-5.50) L 06/30/20 14:35 Hgb 9.7 g/dl (12.0-16.0) L 06/30/20 14:35 Hct 32.1 % (37-47) L 06/30/20 14:35 MCV 82.5 fL (80-98) 06/30/20 14:35 MCH 24.9 pg (27.0-33.0) L 06/30/20 14:35 MCHC 30.2 g/dl (31.0-35.0) L 06/30/20 14:35 RDW 15.4 % (11.0-16.0) 06/30/20 14:35 Plt Count 185 X10*3/uL (160-400) 06/30/20 14:35 MPV 12.1 fL (9.4-12.3) 06/30/20 14:35 Absolute Nucleated RBC 0.000 X10*3/uL (0.0-0.012) 06/30/20 14:35 Nucleated RBC % (auto) 0.0 /100WBC (0.0-0.2) 06/30/20 14:35 Neutrophils % (Manual) 67 % (45-73) 06/30/20 14:35 Band Neutrophils % 2 % (3-5) L 06/30/20 14:35 Lymphocytes % (Manual) 21 % (20-40) 06/30/20 14:35 Monocytes % (Manual) 5 % (2-11) 06/30/20 14:35 Eosinophils % (Manual) 5 % (0-4) H 06/30/20 14:35 Abs Neuts (Manual) 5.4 X10*3/uL (2.2-7.9) 06/30/20 14:35 Lymphocytes # (Manual) 1.6 X10*3/uL (0.6-4.8) 06/30/20 14:35 Monocytes # (Manual) 0.4 X10*3/uL (0.0-1.2) 06/30/20 14:35 Eosinophils # (Manual) 0.4 X10*3/UL (0.0-0.8) 06/30/20 14:35 Platelet Estimate NORMAL (NORMAL) 06/30/20 14:35 Large Platelets PRESENT 06/30/20 14:35 Plt Morphology Comment NOTED 06/30/20 14:35 RBC Morphology NOTED 06/30/20 14:35 Hypochromasia 1+ 06/30/20 14:35 Absolute Retic 0.058 X10*6/uL (0.026-0.095) 06/30/20 14:35 Percent Retic 1.5 % (0.5-1.8) 06/30/20 14:35 Immature Retic Fraction 18.7 % (3.0-15.9) H 06/30/20 14:35 Retic Hgb Equivalent 26.2 pg (30.0-35.0) L 06/30/20 14:35 Haptoglobin 193 mg/dL (43-212) 06/30/20 14:35 Sodium 141 mmol/L (135-145) 06/30/20 14:35 Potassium 4.4 mmol/L (3.3-5.1) 06/30/20 14:35 Chloride 102 mmol/L (96-108) 06/30/20 14:35 Carbon Dioxide 26 mmol/L (22-29) 06/30/20 14:35 Anion Gap 17 (12-20) 06/30/20 14:35 BUN 16 mg/dL (9-16) 06/30/20 14:35 Creatinine 0.92 mg/dL (0.5-1.4) 06/30/20 14:35 Estim Creat Clear Calc 46.1 06/30/20 14:35 Estimated GFR > 60 06/30/20 14:35 Random Glucose 84 mg/dL (60-115) 06/30/20 14:35 Calcium 9.0 mg/dL (8.4-10.2) 06/30/20 14:35 Iron 38 mcg/dL (30-160) 06/30/20 14:35 TIBC 397 mcg/dL (228-428) 06/30/20 14:35 % Saturation 10 % (15-50) L 06/30/20 14:35 Unsat Iron Binding 359 ug/dL 06/30/20 14:35 Ferritin 4 ng/mL (10-250) L 06/30/20 14:35 Total Bilirubin < 0.2 mg/dL (0.0-1.0) 06/30/20 14:35 AST 22 U/L (5-31) 06/30/20 14:35 ALT 19 U/L (0-31) 06/30/20 14:35 Alkaline Phosphatase 56 U/L (39-117) 06/30/20 14:35 Lactate Dehydrogenase 200 U/L (122-220) 06/30/20 14:35 Total Protein 6.7 g/dL (6.5-8.0) 06/30/20 14:35 Albumin 4.1 g/dL (3.5-5.0) 06/30/20 14:35 Vitamin B12 238 pg/mL (200-900) 06/30/20 14:35 Folate 13.1 ng/mL (> or = 4.0) 06/30/20 14:35 IgG Total 904 mg/dL (600-1540) 06/30/20 14:35 IgA Total 224 mg/dL (70-320) 06/30/20 14:35 IgM 43 mg/dL (50-300) L 06/30/20 14:35 SHANIQUE Interpretation SEE NOTE 06/30/20 14:35 Tiss Transglutamin IgA 1 U/mL 06/30/20 14:35 Progress Note: A/P (1) Anemia Problem details: 70-year-old female anemia, referred from Hematology question GI blood loss-she has no overt bleeding EGD/ o-AIDA Status: Acute Assessment and plan: This is a pleasant 70-year-old lady with a history of Anemia on going intermittently, since June of 2015. This is normochromic normocytic. Most likely she has Iron Deficiency Anemia. Her iron profile revealed: 38/397/02/27. She could have anemia on the basis of GI blood loss or iron malabsorption, from something like celiac disease. DIFFERENTIAL DIAGNOSIS: 2. ACD: She could have multifactorial anemia with a component of iron deficiency and anemia of chronic disease. 3. B12 folate deficiency: B12 is 238. Folate 13.1. 4. Hemolytic anemia: Retic 1.5. hAPTO 193. LDH 200. 5. Myelo infiltrative disorder: MDS versus lymphoma versus multiple myeloma: Doubt that she has this. (SIEP: NO MONOCLONAL SPIKE.) Will refer her for further GI evaluation for upper endoscopy and colonoscopy. She tells me her last colonoscopy was 10 years ago at [facility]. I checked transglute IgA, to rule out celiac disease. (<1.) She had an upper endoscopy 09/26. It revealed Phan's esophagus and H pylori. She will follow-up with Dr. Mijares, to get treated for H pylori. In the meantime, I will start her on oral iron supplements. Her hemoglobin has improved. PLAN: She will continue on the iron replacement therapy. In addition there is a report that she had a pancreatic mass, it is in the medical records from June 2015. Most likely she has an IPMN. I will recheck CT scan of the abdomen to update. She will return in 3 months for a follow-up visit. Thank you CC: Dr. Shirley. Nunu Milner. - Time Spent With Patient Total time spent is greater than 50% in coordination of care (as documented) at patient's floor/unit and/or counseling patient: 25 - 35 minutes
[2020-09-29 13:41] LABS: Alanine Aminotransferase 35 U/L (0-31); Alkaline Phosphatase 64 U/L (39-117); Anion Gap 15 (12-20); Aspartate Amino Transferase 33 U/L (5-31); Bilirubin Total 0.4 mg/dL (0.0-1.0); Blood Urea Nitrogen 13 mg/dL (9-16); Calcium 8.8 mg/dL (8.4-10.2); Carbon Dioxide 25 mmol/L (22-29); Chloride 105 mmol/L (96-108); Creatinine Clr Calc Pharmacy 53.2; Estimated Glomerular Filt Rate > 60; Glucose Random 95 mg/dL (60-115); Potassium 4.4 mmol/L (3.3-5.1); Sodium 141 mmol/L (135-145); Total Protein 6.6 g/dL (6.5-8.0)
--- NOTE | 2020-09-29 13:43 | MHC.HEMONC ---
Pt here for follow-up. Labs drawn. CLinical summary updated with nurse. Provider seen patient. Follow-up booked. Grant for inhouse interpretation used.
--- NOTE | 2021-03-31 12:43 | P.PNHO_ITS ---
Medical Summary - Medical Summary Date of Service: 03/31/21 Chief complaint: Follow-up for: Iron deficiency anemia. Medical Summary: DIAGNOSIS: ANEMIA. CURRENT THERAPY: Oral iron. Interval History Interval history: Genevieve Jacobo is a pleasant 71 year old lady, here for a follow-up visit. She does not complain of easy fatigability. No headache no dizziness. No chest pain or trouble breathing. She does have abdominal pain, bloating and change of bowel habits. Denies urinary complaints. Does feel rather depressed. No skin rashes or pruritus. Denies abdominal pain nausea vomiting heartburn or indigestion. She does get some reflux symptoms. As part of the anemia workup, she had an upper endoscopy and colonoscopy 09/[address] Mijares. Findings: Larynx:normal Esophagus: GE junction at 35 cm, diaphragm hiatus at 37 cm, consistent with 2 cm sliding hiatal hernia, short segment barretts suspected with single tongue of salmon pink tissue noted, bx taken which persistently oozed, so 3 clips applied Stomach: Scattered scarring and erythema compatible with atrophic gastritis. Biopsies were obtained. Grade 2 flap valve on retroflexed examination of the cardia. Duodenum: Normal bulb and descending duodenum, bx taken Pathology revealed: GE junction: Phan's esophagus. Mild chronic inactive inflammation. Stomach: H pylori I positive. Duodenum: Normal. Colonoscopy: Poor prep, otherwise normal. Repeat colonoscopy in 1 year due to the poor prep. Previous history: She was noted to be Anemic. Serial hemoglobins are as follows: Aug 20 06:28 11.8 Aug 19 12:42 12.2 Dec 07 18:13 12.2 Dec 05 19:58 12.2 October 18 08:43 11.0 October 09 13:26 11.7 Review of Systems - Constitutional Reports system reviewed and no additional complaints, except as documented, Reports fatigue, Reports malaise - Eyes Reports system reviewed and no additional complaints, except as documented - ENT Reports system reviewed and no additional complaints, except as documented - Cardiovascular Reports system reviewed and no additional complaints, except as documented - Respiratory Reports no additional respiratory complaints - Gastrointestinal Reports system reviewed and no additional complaints, except as documented - Genitourinary Reports no additional female genitourinary complaints - Musculoskeletal Reports system reviewed and no additional complaints, except as documented - Integumentary/Breasts Skin/Breast: Reports no additional skin complaints - Neurologic Reports system reviewed and no additional complaints, except as documented, Rep orts weakness - Psychiatric Reports system reviewed and no additional complaints, except as documented - Endocrine Reports no additional endocrine complaints - Hematologic/Lymphatic Reports system reviewed and no additional complaints, except as documented - Allergic/Immunologic Reports system reviewed and no additional complaints, except as documented [facility] Medical History: Medical History (Last Updated 02/13/21 @ 13:48 by STEFF GastelumC) Abnormal MRI Anemia Anticoagulant long-term use Dyslipidemia Encounter for screening for osteoporosis Essential hypertension Helicobacter pylori (H. pylori) Hyperlipidemia LDL goal <100 Hypovitaminosis D IDDM (insulin dependent diabetes mellitus) Lumbar degenerative disc disease Normocytic anemia On beta jomar at home Osteoarthritis Osteoporosis Pancreatic abnormality Paroxysmal atrial fibrillation Rash Right knee pain Urticaria Functional capacity: independent ambulation Patient : No Family History: Family History (Last Updated 02/13/21 @ 12:43 by VANESSA James) Father Diabetes HTN (hypertension) Heart attack Mother No problems noted. Family/Other No problems noted. Sister Diabetes Heart attack Asthma Surgical History: Surgical History (Last Reviewed 02/13/21 @ 12:43 by VANESSA James) H/O colonoscopy History of cataract extraction with lens replacement History of reversal of tubal ligation History of tubal ligation Social History: Social History (Last Updated 02/13/21 @ 12:54 by VANESSA James) Living Situation History: Household Members: Spouse Housing: Apartment Alcohol History: Alcohol intake: former Alcohol History Details: Alcohol intake frequency: does not drink Tobacco History: Patient Tobacco Use Status: Never used Tobacco Substance Use History: Use of substances other than those prescribed or required for medical reasons : No Nutrition Assessment: Patient : No Occupation Assessmet: service: No Current occupational status: retired Oncology Screenings - ECOG Performance Status ECOG Performance Status: 1 Home Medications and Allergies Allergies Allergy/AdvReac Type Severity Reaction Status Date / Time No Known Allergies Allergy Unknown UN KNOWN Verified 02/13/21 12:48 [NO KNOWN ALLERGIES] Exam Vital signs: Vital Signs Temp 98.0 F 09/29/20 12:56 Pulse 69 09/29/20 12:56 Resp 12 09/29/20 12:56 BP 149/64 H 09/29/20 12:56 Pulse Ox 100 09/29/20 12:56 Weight 64.5 kg Body Mass Index 27.7 - Constitutional Present: no acute distress - Routine HEENT Exam Head: Present: normal inspection Eye: Present: normal appearance ENT: Present: mucous membranes moist - Routine Neck Exam Present: full ROM - Routine Respiratory Exam Present: CTAB - Routine Cardiovascular Exam Cardiovascular: Present: RRR, S1, S2 - Routine Abdominal Exam Present: normal bowel sounds, nontender - Routine Rectal Exam Patient deferred: digital exam - Routine Extremities Exam Present: nontender - Routine Back/Spine/Pelvis Exam Back/Spine: Present: full ROM - Routine Skin Exam Present: intact - Routine Neurological Exam Present: alert, oriented X3 - Detailed Neurological Exam: Coma Scale Eye Opening: Spontaneous (4) - Routine Psychiatric Exam Present: normal affect Data - Labs CBC & Chem 7: 09/29/20 12:55 09/29/20 12:55 Labs: 06/30/20 14:35 Complete Blood Count Man Dif Routine Comprehensive Met. Panel Routine Ferritin Routine Haptoglobin Routine IRON PROFILE Routine Immunofixation Pnl, Serum Routine Lactate Dehydrogenase Routine Reticulocyte Count Routine Transglutaminase IgA Routine Vitamin B12 and Folate Routine Laboratory Last Values WBC 7.8 X10*3/uL (4.8-10.8) 06/30/20 14:35 RBC 3.89 X10*6/uL (4.20-5.50) L 06/30/20 14:35 Hgb 9.7 g/dl (12.0-16.0) L 06/30/20 14:35 Hct 32.1 % (37-47) L 06/30/20 14:35 MCV 82.5 fL (80-98) 06/30/20 14:35 MCH 24.9 pg (27.0-33.0) L 06/30/20 14:35 MCHC 30.2 g/dl (31.0-35.0) L 06/30/20 14:35 RDW 15.4 % (11.0-16.0) 06/30/20 14:35 Plt Count 185 X10*3/uL (160-400) 06/30/20 14:35 MPV 12.1 fL (9.4-12.3) 06/30/20 14:35 Absolute Nucleated RBC 0.000 X10*3/uL (0.0-0.012) 06/30/20 14:35 Nucleated RBC % (auto) 0.0 /100WBC (0.0-0.2) 06/30/20 14:35 Neutrophils % (Manual) 67 % (45-73) 06/30/20 14:35 Band Neutrophils % 2 % (3-5) L 06/30/20 14:35 Lymphocytes % (Manual) 21 % (20-40) 06/30/20 14:35 Monocytes % (Manual) 5 % (2-11) 06/30/20 14:35 Eosinophils % (Manual) 5 % (0-4) H 06/30/20 14:35 Abs Neuts (Manual) 5.4 X10*3/uL (2.2-7.9) 06/30/20 14:35 Lymphocytes # (Manual) 1.6 X10*3/uL (0.6-4.8) 06/30/20 14:35 Monocytes # (Manual) 0.4 X10*3/uL (0.0-1.2) 06/30/20 14:35 Eosinophils # (Manual) 0.4 X10*3/UL (0.0-0.8) 06/30/20 14:35 Platelet Estimate NORMAL (NORMAL) 06/30/20 14:35 Large Platelets PRESENT 06/30/20 14:35 Plt Morphology Comment NOTED 06/30/20 14:35 RBC Morphology NOTED 06/30/20 14:35 Hypochromasia 1+ 06/30/20 14:35 Absolute Retic 0.058 X10*6/uL (0.026-0.095) 06/30/20 14:35 Percent Retic 1.5 % (0.5-1.8) 06/30/20 14:35 Immature Retic Fraction 18.7 % (3.0-15.9) H 06/30/20 14:35 Retic Hgb Equivalent 26.2 pg (30.0-35.0) L 06/30/20 14:35 Haptoglobin 193 mg/dL (43-212) 06/30/20 14:35 Sodium 141 mmol/L (135-145) 06/30/20 14:35 Potassium 4.4 mmol/L (3.3-5.1) 06/30/20 14:35 Chloride 102 mmol/L (96-108) 06/30/20 14:35 Carbon Dioxide 26 mmol/L (22-29) 06/30/20 14:35 Anion Gap 17 (12-20) 06/30/20 14:35 BUN 16 mg/dL (9-16) 06/30/20 14:35 Creatinine 0.92 mg/dL (0.5-1.4) 06/30/20 14:35 Estim Creat Clear Calc 46.1 06/30/20 14:35 Estimated GFR > 60 06/30/20 14:35 Random Glucose 84 mg/dL (60-115) 06/30/20 14:35 Calcium 9.0 mg/dL (8.4-10.2) 06/30/20 14:35 Iron 38 mcg/dL (30-160) 06/30/20 14:35 TIBC 397 mcg/dL (228-428) 06/30/20 14:35 % Saturation 10 % (15-50) L 06/30/20 14:35 Unsat Iron Binding 359 ug/dL 06/30/20 14:35 Ferritin 4 ng/mL (10-250) L 06/30/20 14:35 Total Bilirubin < 0.2 mg/dL (0.0-1.0) 06/30/20 14:35 AST 22 U/L (5-31) 06/30/20 14:35 ALT 19 U/L (0-31) 06/30/20 14:35 Alkaline Phosphatase 56 U/L (39-117) 06/30/20 14:35 Lactate Dehydrogenase 200 U/L (122-220) 06/30/20 14:35 Total Protein 6.7 g/dL (6.5-8.0) 06/30/20 14:35 Albumin 4.1 g/dL (3.5-5.0) 06/30/20 14:35 Vitamin B12 238 pg/mL (200-900) 06/30/20 14:35 Folate 13.1 ng/mL (> or = 4.0) 06/30/20 14:35 IgG Total 904 mg/dL (600-1540) 06/30/20 14:35 IgA Total 224 mg/dL (70-320) 06/30/20 14:35 IgM 43 mg/dL (50-300) L 06/30/20 14:35 SHANIQUE Interpretation SEE NOTE 06/30/20 14:35 Tiss Transglutamin IgA 1 U/mL 06/30/20 14:35 Assessment and Plan Patient Active problem list reviewed?: Yes (1) Anemia Problem details: 70-year-old female anemia, referred from Hematology question GI blood loss-she has no overt bleeding EGD/ colo-AIDA Status: Acute Assessment and plan: This is a pleasant 71 year-old lady with a history of Anemia on going intermittently, since June of 2015. This is normochromic normocytic. Most likely she has Iron Deficiency Anemia. Her iron profile revealed: 38/397/10/. She could have anemia on the basis of GI blood loss or iron malabsorption, from something like celiac disease. DIFFERENTIAL DIAGNOSIS: 2. ACD: She could have multifactorial anemia with a component of iron deficiency and anemia of chronic disease. 3. B12 folate deficiency: B12 is 238. Folate 13.1. 4. Hemolytic anemia: Retic 1.5. hAPTO 193. LDH 200. 5. Myelo infiltrative disorder: MDS versus lymphoma versus multiple myeloma: Doubt that she has this. (SIEP: NO MONOCLONAL SPIKE.) Will refer her for further GI evaluation for upper endoscopy and colonoscopy. She tells me her last colonoscopy was 10 years ago at [facility]. I checked transglute IgA, to rule out celiac disease. (<1.) She had an upper endoscopy 09/26. It revealed Phan's esophagus and H pylori. She will follow-up with Dr. Mijares, to get treated for H pylori. In the meantime, I started her on oral iron supplements. She is clinically doing well. Her hemoglobin has improved. On November 16 it was 11.8 hematocrit 37.5. PLAN: She will continue on the iron replacement therapy. She will return in 3 months for a follow-up visit. Thank you CC: Dr. Shirley. Nunu Milner. (2) Pancreatic mass Status: Acute Assessment and plan: 71-year-old lady with history of pancreatic mass. There is a report that she had a pancreatic mass, it is in the medical records from June 2015. Most likely she has an IPMN. I rechecked CT scan of the abdomen to update. This was done on 11/21 and revealed: No pancreatic mass seen. Cortical thinning or scarring in the lower pole the left kidney and adjacent 1.5 cm low-attenuation lesion. This may represent an evolving infarct or area of infection. Neoplasm cannot be excluded and imaging follow-up is recommended. Cystocele. 2.7 x 5.5 cm right adnexal cyst. Follow-up pelvic ultrasound recommended. MRI of the abdomen on November, revealed: Cortical thinning or scarring in the lower pole of the left kidney. Adjacent 1.2 cm lesion in the lower pole of the left kidney. Enhanced images are limited due to motion artifact. There is question of linear enhancement of the lesion versus changes due to motion artifact. Followup renal ultrasound in 6 months is recommended. Fatty infiltration of the liver. Normal-appearing pancreas. All this is reassuring. - Time Spent With Patient Time Spent with Patient (in minutes): 30
== END | disposition home or self-care (01) ==
LOC: HO.ONC 06-29 15:34
PROVIDERS: Visit Provider Internal Medicine Medical Oncology
DX: D64.9 Anemia, unspecified (principal); Z79.899 Other long term (current) drug therapy
CPT/HCPCS: 36415; 80053; 82607; 82728; 82746; 82784; 83010; 83516; 83540; 83615; 85007; 85025; 85027; 85045; 86334; 99213; 99214